=== PATIENT | male | born 1950 | race Caucasian/White ===

== ENCOUNTER 2020-11-08 08:00 | Day surgery (SDC) | payer MEDICARE ==
[2020-11-08] VITALS (8 sets, daily range): BP systolic 108–157; BP diastolic 64–94
[~2020-11-08] VITALS: Ht 185 cm; Wt 96.0 kg
[2020-11-08 07:41] LABS: BILIRUBIN,URINE NEGATIVE (NEGATIVE); CLARITY,URINE CLEAR; COLOR,URINE YELLOW; GLUCOSE, URINE (UA) NEGATIVE (NEGATIVE); HEMATOCRIT 46 % (40-54); HEMOGLOBIN 16.1 g/dL (13.3-17.7); KETONES,URINE NEGATIVE (NEGATIVE); LEUKOCYTE ESTERASE ,URINE TRACE (NEGATIVE); MEAN CORPUSCULAR HEMOGLOBIN 31 pg (25-34); MEAN CORPUSCULAR HGB CONC 35 g/dL (32-36); MEAN CORPUSCULAR VOLUME 90 fL (80-99); MEAN PLATELET VOLUME 10.3 fL (9.0-12.2); NITRITE,URINE NEGATIVE (NEGATIVE); PH,URINE 6.5 (5-9); PLATELET COUNT 198 10^3/uL (130-400); PROTEIN,URINE NEGATIVE (NEGATIVE); WHITE BLOOD COUNT 7.4 10^3/uL (4.3-11.0)
[2020-11-08 07:53] LABS: INR 1.1 (0.8-1.4); PROTHROMBIN TIME PATIENT 14.2 SEC (12.2-14.7)
--- NOTE | 2020-11-08 07:57 | Conscious Sedation/ASA ---
Conscious Sedation Pre-Proced Time 07:57 ASA Score 3 For ASA 3 and 4: Consider anesthesia and medical clearance. Also, for patients with a history of failed moderate sedation consider anesthesia. Airway Lungs Heart ASA score ASA 1: a normal healthy patient ASA 2: a patient with a mild systemic disease (mid diabetes, controlled hypertension, obesity x ASA 3: a patient with a severe systemic disease that limits activity (angina, COPD, prior Myocardial infarction) ASA 4: a patient with an incapacitating disease that is a constant threat to life (CHF, renal failure) ASA 5: a moribund patient not expected to survive 24 hrs. (ruptured aneurysm) ASA 6: a declared brain- patient whose organs are being harvested. For emergent operations, add the letter E after the classification Mallampati Classification Grade 3 Sedation Plan Analgesia, Amnesia, Plan communicated to team members, Discussed options with patient/fam, Discussed risks with patient/fam The patient is an appropriate candidate to undergo the planned procedure, sedation, and anesthesia. The patient immediately re-assessed prior to indication. FLACA KAMARA MD Nov 08, 2020 7:57 am
[2020-11-08 07:58] LABS: ALANINE AMINOTRANSFERASE 38 U/L (0-55); ALBUMIN 4.6 GM/DL (3.2-4.5); ALKALINE PHOSPHATASE 64 U/L (40-136); BILIRUBIN,TOTAL 1.4 MG/DL (0.1-1.0); BUN/CREATININE RATIO 16; CALCIUM 9.8 MG/DL (8.5-10.1); CARBON DIOXIDE 25 MMOL/L (21-32); CHLORIDE 103 MMOL/L (98-107); CHOLESTEROL 155 MG/DL (< 200); CREATININE SERUM 1.09 MG/DL (0.60-1.30); GFR ESTIMATED > 60; GLUCOSE 156 MG/DL (70-105); HDL CHOLESTEROL 41 MG/DL (40-60); POTASSIUM 3.5 MMOL/L (3.6-5.0); SODIUM 140 MMOL/L (135-145); TOTAL PROTEIN 7.7 GM/DL (6.4-8.2); TRIGLYCERIDES 79 MG/DL (<150); VLDL CHOLESTEROL 16 MG/DL (5-40)
--- NOTE | 2020-11-08 07:59 | Diagnostic Imaging Report ---
INDICATION: Pre-heart catheterization and coronary artery disease. Time of exam 7:25 AM Correlation is made with prior chest 11/03/2020. The heart size is normal. The pulmonary vascularity is unremarkable. The lungs are clear. No infiltrate, effusion or pneumothorax is detected. Impression: No acute cardiopulmonary process is detected. Dictated by: Dictated on workstation # [id number]
[2020-11-08 08:00] LABS: AMORPHOUS SEDIMENT,UR RARE AMOR URATES /LPF; BACTERIA,URINE TRACE /HPF; SQUAMOUS EPITHELIAL CELL,UR RARE /HPF
[~2020-11-08 08:00] MED LIST: ACET-2267 PO; ALLO100T PO; ASPI-1238 PO; ATOR80TA76 PO; CHOL-34 PO; CLOP75TA28 PO; FISH1CAP15 PO; MTP25TSR PO; MULT-1136 PO; NS IV 1000 ML 1,000 ML IV SCH; POTA15TA9 PO; TRIA1TAB3 PO
--- NOTE | 2020-11-08 08:44 | Cardiac Cath Report ---
Cardiac Cath Report Physician (s)/Artificial Limb Maker (s) Physician FLACA KAMARA MD Pre-Procedure Diagnosis Pre-Procedure Diagnosis: Coronary artery disease Post-Procedure Note Procedure Start Date: Nov 08, 2020 Name of Procedure: Aortic arch angiogram Primary stenting to the right coronary artery Findings/Procedure Note PROCEDURE NOTE: 70 years old gentleman with history of coronary artery disease recent myocardial infarction with total occlusion of the circumflex artery, had a complex intervention, good results, had severe stenosis in the right coronary artery and it was staged for intervention. After explaining the procedure to the patient, all pros and cons were explained, all questions were answered. The patient signed the consent and then he was placed on the cardiac catheterization laboratory. Groin was prepped SL fashion local anesthesia was used. Sheath placed in the right radial artery, patient was given a total of 6000 units of heparin, Herbie right guide was advanced to the right coronary artery, significant tortuosity in the brachiocephalic artery and the aortic arch was noted, the Herbie right was advanced to the right coronary artery, BMW wire was advanced and parked distally across the lesion then a Livier 2.5 x 18 mm was deployed, multiple inflation then postdilatation with noncompliant NC trek 3 x 20 up to 15 ashwini which stretch the stent to 3.05 mm with excellent results. The Herbie right guide was pulled back to the aortic arch and angiogram was done At the end of the procedure the sheath was removed. Vascular band deployed FINDINGS: ANATOMY: Right Coronary Artery has mid severe stenosis, successful primary stenting using Livier 2.5 x 18 mm postdilated to 3.05 mm with excellent results Aorta evaluation done with aortic arch angiogram showing normal aortic arch in size, no dissection or aneurysm, tortuous origin of the brachiocephalic artery, patient has separate origin of the right carotid artery, the left carotid artery is normal, subclavian artery was not well visualized CONCLUSION: 1. Successful primary stenting of severe mid right coronary artery stenosis using Livier 2.5 x 18 mm extended to 3.05 mm with excellent results, no residual stenosis 2. 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 Anesthesia Type: Conscious Sedation Estimated blood loss (mL): 15 ml Contrast Amount: 85 ml Total Radiation Dose: 774 mGy Post-Procedure Diagnosis Post-operative diagnosis: Coronary artery disease Hypertension Hyperlipidemia FLACA KAMARA MD Nov 08, 2020 08:44
[2020-11-08] MEDS ORDERED: NS IV 1000 ML 1,000 ML IV SCH (08:45)
[2020-11-08] MEDS ORDERED: ASPIRIN 325 MG (5 GR) TABLET ONE (08:46)
[2020-11-08] MEDS ORDERED: CLOPIDOGREL 300 MG (PLAVIX) TABLET PO ONE (08:47)
[2020-11-08] MEDS ORDERED: PANT40TA52 PO (08:57)
--- NOTE | 2020-11-08 08:58 | Discharge Inst-Post CATH ---
Discharge Inst-CATH/EP Problems Reviewed?: Yes Post Cardiac Cath/EP D/C Inst Follow Up/Plan Appointment with Dr. Shah's office in 2 weeks <b>CARDIAC CATH/EP PROCEDURE DISCHARGE INSTRUCTIONS</b> ACTIVITY * Go Home directly and rest. * Limit activity of the leg (or wrist if it was used) for 7 days including aerobics, swimming, jogging, bicycling, etc. * Restrict stair-climbing for 7 days if possible, if not, climb up with your non-cath leg, then bring together on the same step. * Avoid lifting, pushing, pulling or excessive movement of the affected e xtremity for 7 days. * Customary sexual activity may be resumed after 2 days-use caution not to use a position that strains or causes pain to the affected extremity. * No driving for 24 hours. * NO SMOKING. * Avoid straining for bowel movements for 7 days. * Gentle walking on level ground is allowed. * Returning to work will depend on the type of procedure and the results. Your doctor will discuss this with you. CALL YOUR DOCTOR FOR ANY OF THE FOLLOWING: *If bleeding from the puncture site occurs- Apply gentle pressure to site with clean cloth and call your doctor or EMS. * If a knot or lump forms under the skin, increases in size, or causes pain. * If bruising appears to be worsening or moving further down your leg instead of disappearing. * Temperature above 101 F. CARE OF YOUR GROIN INCISION; * Bruising or purple discoloration of the skin near the puncture site is common. * You may shower only, no bathtub bathing for 5 days. Be careful to avoid slipping as your leg may feel stiff. * If a closure device was used on your femoral artery, please see the attached guide regarding care of the device and your leg. * Leave dressing on FOR 24 hours. CARE OF YOUR WRIST INCISION; * Bruising or purple discoloration of the skin near the puncture site is common. * You may shower. * DO NOT submerge wrist. * Leave dressing on FOR 24 hours. FLACA SHAH MD Nov 08, 2020 8:58 am
[2020-11-08] MEDS ORDERED: TRIAMTERENE/HCTZ 75-50 (MAXZIDE,DYAZIDE) TABLET PO SCH (09:00)
[2020-11-08] MEDS ORDERED: NON-FORMULARY MEDICATION 1 EA EA (Potassium Citrate (Potassium Citrate ER) 15 MEQ) PO SCH (09:00)
[2020-11-08] MEDS ORDERED: ASPIRIN E.C. 81 MG (ECOTRIN) TAB PO SCH (09:00)
[2020-11-08] MEDS ORDERED: CLOPIDOGREL 75 MG (PLAVIX) TABLET PO SCH (09:00)
[2020-11-08] MEDS ORDERED: ALLOPURINOL 100 MG (ZYLOPRIM) TAB PO SCH (09:00)
[2020-11-08] MEDS ORDERED: PANTOPRAZOLE 40 MG (PROTONIX) TAB PO SCH (09:00)
[2020-11-09] MEDS ORDERED: MULTIVIT W/MINERALS TAB (THERAGRAN M) PO SCH (07:00)
[2020-11-09] MEDS ORDERED: OMEGA 3 (FISH OIL) 1000 MG CAP PO SCH (07:00)
[2020-11-09] MEDS ORDERED: ASPIRIN E.C. 81 MG (ECOTRIN) TAB PO SCH (09:00)
[2020-11-09] MEDS ORDERED: CLOPIDOGREL 75 MG (PLAVIX) TABLET PO SCH (09:00)
== END 2020-11-08 15:30 | disposition home or self-care (01) ==
LOC: CATH 08:00 → CSD 10:03 → CATH 15:30
PROVIDERS: ATTEND Internal Medicine Cardiovascular Disease
DX: I21.3 ST elevation (STEMI) myocardial infarction of unspecified site (principal); I25.119 Atherosclerotic heart disease of native coronary artery with unspecified angina pectoris; I10 Essential (primary) hypertension; I25.10 Atherosclerotic heart disease of native coronary artery without angina pectoris; R57.8 Other shock; M10.9 Gout, unspecified; I47.2 Ventricular tachycardia; E78.5 Hyperlipidemia, unspecified; Z79.82 Long term (current) use of aspirin; Z79.899 Other long term (current) drug therapy; Z79.02 Long term (current) use of antithrombotics/antiplatelets
CPT/HCPCS: 36221; 71045; 80053; 80061; 81000; 85027; 85610; 85730; 87081; C1725; C1769; C1874; C1887; C1894; C9600; 36415

== ENCOUNTER → 2022-02-19 | Outpatient (CLI) | payer MEDICARE ==
[~2022-02-19] MED LIST changes: -NS IV 1000 ML 1,000 ML IV SCH; +PANT40TA52 PO
== END ==
LOC: CARD 08:04
PROVIDERS: ATTEND Physician Assistant
DX: I35.0 Nonrheumatic aortic (valve) stenosis (principal); I10 Essential (primary) hypertension
CPT/HCPCS: 93306

== ENCOUNTER → 2022-03-06 | Outpatient (CLI) | payer MEDICARE ==
[~2022-03-06] VITALS: Ht 188 cm; Wt 91.0 kg
[~2022-03-06] MED LIST changes: +CATHETER FLUSH 10 ML SYR IVP PRN; +REGADENOSON 0.4 MG/5 ML SYR (LEXISCAN) IV ONE
[2022-03-06 09:13] VITALS: BP 108/79
[2022-03-06 09:28] VITALS: BP 125/67
--- NOTE | 2022-03-06 11:47 | Cardiology Stress Test Report ---
Stress Test Report Date of Procedure/Referring: Date of Procedure: Mar 06, 2022 PCP No,Local Physician Admitting Physician Admitting Physician: Attending Physician: Maggi Castañeda Indications: HTN Baseline Heart Rate: 74 Baseline Blood Pressure: Blood Pressure Systolic: 125 Blood Pressure Diastolic: 67 Baseline Vitals Vital Signs Date Time Temp Pulse Resp B/P (MAP) Pulse Ox O2 Delivery O2 Flow Rate FiO2 03/06/22 09:13 70 17 108/79 (89) Baseline EKG: Baseline EKG: NSR Summary After explaining the procedure to the patient, he signed a consent and then brought to the stress nuclear laboratory. Patient received 0.4 mg Lexiscan for stress test, ECG, heart rate and blood pressure were monitored continuously. Resting and stress dose of radio tracer were injected, imaging was acquired and reviewed in short axis, horizontal long axis and vertical long axis views. TID: 1.06 SSS: 4 SDS: 2 EF: 59 1. Patient was unable to exercise beyond 1 minute and 30 seconds on standard Yunior protocol, test was terminated and converted to Lexiscan Myoview stress test. 2. Patient tolerated Lexiscan well 3. Diaphragmatic attenuation with mild decrease uptake involving the basal to mid inferior lateral wall with mild reversibility, overall there is no signif icant ischemia or infarction on SPECT images 4. Normal left ventricular size, ejection fraction 59% FLACA KAMARA MD Mar 06, 2022 11:47
== END ==
LOC: CARD 07:25
PROVIDERS: ATTEND Physician Assistant
DX: I10 Essential (primary) hypertension (principal)
CPT/HCPCS: 78452; 93017; A9502